=== PATIENT | male | born 2000 | race African-American/Black ===

== ENCOUNTER → 2021-08-20 | Emergency (ER) | payer OTHER ==
[~2021-08-20] VITALS: Ht 185.4 cm; Wt 77.1 kg
[~2021-08-20] MED LIST: AMOX-CLAV 875-1 EACH PO; DECADRON4 MG PO
== END | disposition home or self-care (01) ==
LOC: ER 09:48 → EMR PED 09:48
DX: J01.00 Acute maxillary sinusitis, unspecified (principal)